=== PATIENT | female | born 1960 | race Caucasian/White ===

== ENCOUNTER → 2018-10-17 14:18 | Outpatient (CLI) | payer BC, SELFPAY ==
--- NOTE | 2018-10-17 15:35 | NEURO ---
NCS and/or EMG Patient Report Ordering Doctor: Ayan Cartagena DATE OF SERVICE: 10/17/18 Michelle Beckham is a 58-year-old female presents for electrodiagnostic testing of the upper limbs. She reports numbness and tingling in both hands, worse on the right side. Electrodiagnostic findings: Right median motor nerve demonstrates prolonged distal latency with normal amplitude and reduced conduction velocity. Left median motor nerve demonstrates normal distal latency with normal amplitude and conduction velocity. Normal ulnar motor response bilaterally. Prolonged right median F wave. Prolonged median sensory latency at the wrist bilaterally. Ulnar and radial sensory responses are normal. Absent right median palmar response prolonged left median palmar response Needle EMG testing showed no evidence of denervation in any muscles tested. Motor unit action potentials are normal amplitude and duration. Next Electrodiagnostic assessment: This is an abnormal study in the upper limbs. 1. Electrodiagnostic findings demonstrate bilateral median mononeuropathy. This is consistent with a moderate right carpal tunnel syndrome and a mild left carpal tunnel syndrome. If there are any further questions, please do not hesitate to contact me.
== END ==
PROVIDERS: Family Provider Family Medicine; PCP Family Medicine; Referring Provider Orthopaedic Surgery Hand Surgery; Visit Provider Orthopaedic Surgery Hand Surgery
DX: G56.03 Carpal tunnel syndrome, bilateral upper limbs (principal)
CPT/HCPCS: 95886; 95912

== ENCOUNTER 2019-04-21 17:38 | Emergency (ER) | payer BC, SELFPAY ==
[2019-04-21 17:38] VITALS: BP 150/89; PULSE 89; RESP 16; TEMP 36.8; O2SAT 99
--- NOTE | 2019-04-21 17:50 | ED.DCSUM_ITS ---
- ER Visit Summary Date of Service: 04/21/19 Chief Complaint: Left hand laceration while sharpening a knife History of Present Illness: The patient is a 59 F right-hand dominant. No seen past medical history. On no blood thinners. She was sharpening a knife at home within the last hour. Patient lacerated dorsum of her left hand proximal to the left index finger MCP joint. Denies any numbness. Denies any loss of range of motion. No prior history. States her tetanus is up-to-date. Physical Examination: Middle-aged female no acute distress vital signs stable afebrile. HEENT exam unremarkable. Lungs are clear. Heart regular rhythm. The dorsum of her left hand has a laceration just proximal to the MCP joint of the left index finger on the dorsum of the hand. There is mild oozing of blood. There is no pulsatile bleeding. No signs of foreign body. She has full flex ion and extension against resistance of the left index finger. Normal touch sensation and cap refill. This does involve the skin and subcu tissue and connective tissue but does not appear to involve the extensor tendon. Again she can flex and extend against resistance. Has normal cap refill intact sensation. Other digits of the left hand are unremarkable. Palm is unremarkable. Test Results: None Emergency Department Course and Treatment: Procedure note: Left hand dorsum laceration with ER repair. Locally anesthetized with lidocaine plain. Washed with Shur-Clens, copiously irrigated and explored. Closed using 2 simple interrupted 4-0 Vicryl sutures in the subcu tissue to close connective tissue. Then 7 simple opted 4-0 Ethilon sutures to close the skin. Patient tolerated procedure well. Suture removal in minimum of 10 maximum 14 days. Keflex 500 4 times daily for 5 days. Treatment Plan: Wound care. Return if any signs of infection. Follow-up if any loss of function. Disposition: Discharge Impression: Left hand dorsum laceration of approximately 4 cm in the ER repair with a 2 layer closure. This note was generated with [employer] dictation software. It may contain incorrect words, spelling, and punctuation that were not noted in review of the chart prior to signing ED Disposition - Plan for ED Patient: Disposition: Home or Assisted Living Instructions: LACERATION, Hand Prescriptions: Cephalexin [Keflex] 500 mg PO Q6 #20 cap Prescription Printed Referrals: Stephan Dorman [Primary Care Provider] - 10 Day for suture removal Additional Instructions: Ice and elevate to decrease pain and swelling. Tylenol and Motrin for pain. Watch for any signs of infection such as pus, swelling, redness or fever is seen return. Follow-up with any loss of function such as decreased range of motion or unable to extend your finger. Suture removal in 10 days.
--- NOTE | 2019-04-21 17:53 | ED.DEP ---
ED Disposition - Plan for ED Patient: Disposition: Home or Assisted Living Instructions: LACERATION, Hand Prescriptions: Cephalexin [Keflex] 500 mg PO Q6 #20 cap Prescription Printed Referrals: Stephan Dorman [Primary Care Provider] - 10 Day for suture removal Additional Instructions: Ice and elevate to decrease pain and swelling. Tylenol and Motrin for pain. Watch for any signs of infection such as pus, swelling, redness or fever is seen return. Follow-up with any loss of function such as decreased range of motion or unable to extend your finger. Suture removal in 10 days.
== END 2019-04-21 19:10 | disposition home or self-care (01) ==
LOC: ED 17:55
PROVIDERS: Emergency Provider Emergency Medicine; Family Provider Family Medicine; PCP Family Medicine
DX: S61.412A Laceration without foreign body of left hand, initial encounter (principal); W26.0XXA Contact with knife, initial encounter; Y93.89 Activity, other specified; Y92.009 Unspecified place in unspecified non-institutional (private) residence as the place of occurrence of the external cause
CPT/HCPCS: 12002; 99283

== ENCOUNTER → 2020-07-29 15:25 | Outpatient (CLI) | payer BC, SELFPAY ==
[2020-07-29 18:27] LABS: Absolute Lymphocyte Count 1.26 X10^3/uL (0.83-4.51); Absolute Neutrophil Count 2.4 X10^3/uL (2.0-7.7); Basophil# 0.03 X10^3/uL; Basophil% 0.8 % (0-1); Eosinophil# 0.02 X10^3/uL; Eosinophils% 0.5 % (0-5); Hematocrit 38.7 % (37-47); Hemoglobin 12.6 g/dL (12.0-15.0); Lymphocyte # 1.26 X10^3/ul (4.0); Lymphocyte % 31.7 % (19-41); Mean Corp Hgb Conc 32.6 g/dL (32-36); Mean Corpuscular Hgb 31.5 pg (27.0-32.0); Mean Corpuscular Volume 96.8 fL (81-99); Mean Platelet Vol. 10.3 fl (6.2-12.0); Monocyte% 7.5 % (0-10); NRBC Flagged by Analyzer 0 % (0-5); Neutrophil # 2.37 X10^3/uL (2.7-7.7); Neutrophil % 59.5 % (47-70); Platelet Count 274 K/mm3 (150-450); RBC Distribution Width CV 13.2 % (11.6-14.6); RBC Distribution Width SD 46.3 fl (35.1-43.9)
[2020-07-29 18:58] LABS: ALB/GLOB Ratio 1.4 RATIO (0.9-2.4); AST(SGOT) 23 U/L (15-37); Alanine Aminotransfer ALT/SGPT 25 U/L (13-56); Albumin, Serum 4.3 g/dL (3.2-5.0); Alkaline Phosphatase 53 U/L (45-117); Anion Gap 7 (5-15); BUN 21 mg/dL (7-18); BUN/Creat Ratio 21.8 RATIO (10-20); Calcium,Total 9.5 mg/dL (8.5-10.1); Chloride 104 mmol/L (98-107); Cholesterol 185 mg/dL (200); Creatinine, Serum 0.96 mg/dL (0.55-1.02); EST Glomerular Filtration Rate 63 mL/min (>60); Est Glom Filt Rate - Afr Amer 76 mL/min (>60); Glucose 76 mg/dL (74-106); High Density Lipoprotein 104 mg/dL; Potassium 3.9 mmol/L (3.5-5.1); Protein, Total 7.3 g/dL (6.4-8.2); Sodium Level 139 mmol/L (136-145); Triglycerides 39 mg/dL; Very Low Density Lipoprotein 8 mg/dL (5-40)
[2020-07-29 19:05] LABS: Hemoglobin A1c 5.6 % (3.8-5.6)
== END ==
PROVIDERS: PCP Family Medicine; Referring Provider Family Medicine; Visit Provider Family Medicine
DX: E78.00 Pure hypercholesterolemia, unspecified (principal); R73.03 Prediabetes
CPT/HCPCS: 36415; 80053; 80061; 83036; 85025

== ENCOUNTER → 2020-08-25 15:28 | Outpatient (CLI) | payer BC, SELFPAY ==
--- NOTE | 2020-08-25 15:32 | BI_ITS ---
MAMMOGRAPHY - BILATERAL SCREENING REASON FOR EXAM: Female, 60 years old. Routine annual screening examination. PERTINENT HISTORY: Aunt with breast cancer. TECHNIQUE: Digital bilateral breast clemencia (3D mammographic acquisition) in the CC and MLO projections. 2-D mediolateral oblique (MLO) and craniocaudad (CC) views of both breasts were obtained. CAD: Full Field Digital Mammography with Computer Added Detection was performed. COMPARISON: Comparison is made with prior abdomen examination dated 08/19/2019. FINDINGS: Breast Composition: The breasts are heterogeneously dense, which may obscure small masses. There are no dominant masses or suspicious calcifications. No other significant abnormalities are identified. There has been no significant change since the prior study. BI/SCRN MAMM (CAD)W/CLEMENCIA BILAT IMPRESSION: Stable bilateral screening mammogram. Yearly follow-up mammogram recommended. (A) ASSESSMENT CATEGORY: BIRADS Category 1: Negative. A letter regarding these results will be sent to the patient by the facility within 30 days. Approximately 10% of breast cancers are not detected by mammography. A normal mammogram should not delay biopsy of a clinically suspicious abnormality. [id number] Electronically Signed: Abrahan Brenner MD at 16:02 EST , Service support ,
== END ==
PROVIDERS: PCP Family Medicine; Referring Provider Family Medicine; Visit Provider Family Medicine
DX: Z12.31 Encounter for screening mammogram for malignant neoplasm of breast (principal)
CPT/HCPCS: 77063; 77067

== ENCOUNTER 2021-07-23 16:12 | Outpatient (CLI) | payer BC, SELFPAY ==
[2021-07-23 17:46] LABS: ALB/GLOB Ratio 1.4 RATIO (0.9-2.4); AST(SGOT) 27 U/L (15-37); Alanine Aminotransfer ALT/SGPT 29 U/L (13-56); Albumin, Serum 4.3 g/dL (3.2-5.0); Alkaline Phosphatase 47 U/L (45-117); Anion Gap 7 (5-15); BUN 15 mg/dL (7-18); BUN/Creat Ratio 14.2 RATIO (10-20); Calcium,Total 9.1 mg/dL (8.5-10.1); Chloride 104 mmol/L (98-107); Creatinine, Serum 1.06 mg/dL (0.55-1.02); EST Glomerular Filtration Rate 56 mL/min (>60); Est Glom Filt Rate - Afr Amer 68 mL/min (>60); Glucose 92 mg/dL (74-106); Potassium 3.9 mmol/L (3.5-5.1); Protein, Total 7.3 g/dL (6.4-8.2); Sodium Level 139 mmol/L (136-145)
== END 2021-07-23 23:59 | disposition short-term general hospital (02) ==
LOC: LAB 16:14
PROVIDERS: PCP Family Medicine; Visit Provider Family Medicine
DX: Z11.59 Encounter for screening for other viral diseases (principal); R73.03 Prediabetes
CPT/HCPCS: 36415; 80053

== ENCOUNTER 2021-08-27 15:18 | Outpatient (CLI) | payer BC, SELFPAY ==
--- NOTE | 2021-08-27 15:28 | BI_ITS ---
MAMMOGRAPHY - BILATERAL SCREENING REASON FOR EXAM: Female, 61 years old. Routine annual screening examination. PERTINENT HISTORY: Aunt with breast cancer. TECHNIQUE: Digital bilateral breast clemencia (3D mammographic acquisition) in the CC and MLO projections. 2-D mediolateral oblique (MLO) and craniocaudad (CC) views of both breasts were obtained. CAD: Full Field Digital Mammography with Computer Added Detection was performed. COMPARISON: Comparison is made with prior study dated 08/25/2020. FINDINGS: Breast Composition: The breasts are extremely dense, which lowers the sensitivity of mammography. There are no dominant masses or suspicious calcifications. No other significant abnormalities are identified. There has been no significant change since the prior study. BI/SCRN MAMM (CAD)W/CLEMENCIA BILAT IMPRESSION: Stable bilateral screening mammogram. Yearly follow-up mammogram recommended. (A) ASSESSMENT CATEGORY: BIRADS Category 1: Negative. A letter regarding these results will be sent to the patient by the facility within 30 days. Approximately 10% of breast cancers are not detected by mammography. A normal mammogram should not delay biopsy of a clinically suspicious abnormality. [id number] Electronically Signed: Abrahan Brenner MD at 8:09 EST ,
== END 2021-08-27 23:59 | disposition home or self-care (01) ==
PROVIDERS: PCP Family Medicine; Visit Provider Nurse Practitioner Adult Health
DX: Z12.31 Encounter for screening mammogram for malignant neoplasm of breast (principal)
CPT/HCPCS: 77063; 77067

== ENCOUNTER → 2022-07-22 | Outpatient (CLI) | payer BC, SELFPAY ==
[2022-07-22 16:03] LABS: Absolute Lymphocyte Count 1.34 X10^3/uL (0.83-4.51); Absolute Neutrophil Count 3.2 X10^3/uL (2.0-7.7); Basophil# 0.04 X10^3/uL; Basophil% 0.8 % (0-1); Eosinophil# 0.05 X10^3/uL; Hematocrit 37.4 % (37-47); Hemoglobin 12.4 g/dL (12.0-15.0); Lymphocyte # 1.34 X10^3/ul (0.83-4.51); Mean Corp Hgb Conc 33.2 g/dL (32-36); Mean Corpuscular Hgb 32.1 pg (27.0-32.0); Mean Corpuscular Volume 96.9 fL (81-99); Mean Platelet Vol. 9.5 fl (6.2-12.0); Monocyte# 0.37 X10^3/uL; Monocyte% 7.4 % (0-10); NRBC Flagged by Analyzer 0 % (0-5); Neutrophil # 3.16 X10^3/uL (2.7-7.7); Neutrophil % 63.6 % (47-70); Platelet Count 287 K/mm3 (150-450); RBC Distribution Width CV 12.5 % (11.6-14.6); Red Blood Count 3.86 M/mm3 (4.2-5.4)
[2022-07-22 16:20] LABS: Hemoglobin A1c 5.7 % (3.8-5.6)
[2022-07-22 16:30] LABS: Cholesterol 175 mg/dL (200); High Density Lipoprotein 112 mg/dL; Triglycerides 33 mg/dL; Very Low Density Lipoprotein 7 mg/dL (5-40)
== END | disposition home or self-care (01) ==
LOC: LAB 15:27
PROVIDERS: PCP Family Medicine; Visit Provider Family Medicine
DX: S22.080A Wedge compression fracture of T11-T12 vertebra, initial encounter for closed fracture (principal); M46.96 Unspecified inflammatory spondylopathy, lumbar region; X58.XXXA Exposure to other specified factors, initial encounter; M48.061 Spinal stenosis, lumbar region without neurogenic claudication; R73.03 Prediabetes; Z11.59 Encounter for screening for other viral diseases; Z85.3 Personal history of malignant neoplasm of breast
CPT/HCPCS: 36415; 80061; 83036; 85025; 86803; 86804

== ENCOUNTER → 2022-08-11 | Outpatient (CLI) | payer BC, SELFPAY ==
[2022-08-11 16:05] LABS: ALB/GLOB Ratio 1.4 RATIO (0.9-2.4); AST(SGOT) 35 U/L (15-37); Alanine Aminotransfer ALT/SGPT 32 U/L (13-56); Albumin, Serum 4.2 g/dL (3.2-5.0); Alkaline Phosphatase 47 U/L (45-117); Anion Gap 7 (5-15); BUN 17 mg/dL (7-18); BUN/Creat Ratio 17.4 RATIO (10-20); Chloride 103 mmol/L (98-107); Creatinine, Serum 0.98 mg/dL (0.55-1.02); EST Glomerular Filtration Rate 62 mL/min (>60); Est Glom Filt Rate - Afr Amer 75 mL/min (>60); Glucose 89 mg/dL (74-106); Potassium 3.7 mmol/L (3.5-5.1); Protein, Total 7.2 g/dL (6.4-8.2); Sodium Level 140 mmol/L (136-145)
== END | disposition home or self-care (01) ==
LOC: LAB 15:24
PROVIDERS: PCP Family Medicine; Visit Provider Family Medicine
DX: R73.03 Prediabetes (principal)
CPT/HCPCS: 36415; 80053

== ENCOUNTER → 2022-09-02 | Outpatient (CLI) | payer BC, SELFPAY ==
--- NOTE | 2022-09-02 15:20 | BI_ITS ---
MAMMOGRAPHY - BILATERAL SCREENING 3-D TOMOSYNTHESIS REASON FOR EXAM: Female, 62 years old. Routine screening PERTINENT HISTORY: Aunt with breast cancer.. TECHNIQUE: 2-D mammograms and 3-D Tomosynthesis of the breast (s) were performed. CAD was performed. COMPARISON: 08/25/2020 FINDINGS: The breast composition is heterogeneously dense that can obscure small breast masses. Scattered benign calcifications are seen. No dense spiculated masses or suspicious microcalcifications are identified. No architectural distortion is identified. There is no skin thickening or retraction. There has been no significant change since the prior study. BI/SCRN MAMM (CAD)W/CLEMENCIA BILAT IMPRESSION: No mammographic signs of malignancy. Routine yearly mammograms recommended. ASSESSMENT CATEGORY: BIRADS Category 2: Benign. A letter regarding these results will be sent to the patient by the facility within 30 days. FOLLOW UP RECOMMENDATION: Yearly follow up mammogram recommended. (A) Approximately 10% of breast cancers are not detected by mammography. A normal mammogram should not delay biopsy of a clinically suspicious abnormality. Electronically Signed: Bandar Huerta MD at 9:13 EDT ,
== END | disposition home or self-care (01) ==
LOC: OPBI 15:18
PROVIDERS: PCP Family Medicine
DX: Z12.31 Encounter for screening mammogram for malignant neoplasm of breast (principal)
CPT/HCPCS: 77063; 77067

== ENCOUNTER → 2022-11-25 | Outpatient (CLI) | payer BC, SELFPAY ==
[2022-11-25 15:45] LABS: Absolute Lymphocyte Count 1.17 X10^3/uL (0.83-4.51); Absolute Neutrophil Count 2.8 X10^3/uL (2.0-7.7); Basophil# 0.03 X10^3/uL; Basophil% 0.7 % (0-1); Eosinophil# 0.02 X10^3/uL; Eosinophils% 0.5 % (0-5); Hematocrit 34.7 % (37-47); Hemoglobin 11.7 g/dL (12.0-15.0); Lymphocyte # 1.17 X10^3/ul (0.83-4.51); Lymphocyte % 26.7 % (19-41); Mean Corp Hgb Conc 33.7 g/dL (32-36); Mean Corpuscular Hgb 32.1 pg (27.0-32.0); Mean Corpuscular Volume 95.1 fL (81-99); Mean Platelet Vol. 9.8 fl (6.2-12.0); Monocyte# 0.34 X10^3/uL; Monocyte% 7.8 % (0-10); NRBC Flagged by Analyzer 0 % (0-5); Neutrophil # 2.82 X10^3/uL (2.7-7.7); Neutrophil % 64.3 % (47-70); Platelet Count 208 K/mm3 (150-450); RBC Distribution Width CV 12.3 % (11.6-14.6); RBC Distribution Width SD 42.9 fl (35.1-43.9); Red Blood Count 3.65 M/mm3 (4.2-5.4); White Blood Count 4.4 K/mm3 (4.4-11.0)
[2022-11-25 16:19] LABS: Vitamin B12 717 pg/mL (211-911)
== END | disposition home or self-care (01) ==
LOC: LAB 15:21
PROVIDERS: PCP Family Medicine; Referring Provider Family Medicine; Visit Provider Family Medicine
DX: D75.89 Other specified diseases of blood and blood-forming organs (principal)
CPT/HCPCS: 36415; 82607; 82746; 85025

== ENCOUNTER → 2023-04-06 | Outpatient (CLI) | payer BC, SELFPAY ==
--- NOTE | 2023-04-06 07:09 | CT_ITS ---
EXAM: CT HEAD WITHOUT INTRAVENOUS CONTRAST CLINICAL INDICATION: BLURRY VISION TECHNIQUE: Multiple axial images were obtained of the head without intravenous contrast. This CT exam was performed using one or more of the following dose reduction techniques: automated exposure control, adjustment of the mA and/or kV according to patient size, and/or use of iterative reconstruction technique. RADIATION DOSE: Total DLP: 745.49 mGy-cm. COMPARISON: No relevant prior studies available. FINDINGS: BRAIN AND EXTRA-AXIAL SPACES: A minimal degree of age-related cortical atrophy is present with slight prominence of the sulci and sylvian fissures. Ventricles are normal in size and shape. There is no midline shift. No intra- or extra-axial hemorrhage. No intracranial mass effect. No evidence of acute infarct. There is preservation of the doe/white matter interface. Posterior fossa structures are unremarkable. Basal cisterns are patent. BONES/JOINTS: Unremarkable. No discrete lytic or blastic abnormalities. VASCULATURE: Atherosclerotic vascular calcification is present. The middle cerebral arteries are not hyperdense. SINUSES: Unremarkable as visualized. Clear. MASTOID AIR CELLS: Unremarkable. Clear. ORBITS: Visualized globes, extraocular muscles, optic nerves and retrobulbar fat appear unremarkable. SELLA: No evidence for suprasellar mass. CT/Brain/Head without Contrast IMPRESSION: No acute intracranial abnormality. Electronically Signed: Huang Menezes MD at 7:32 EDT ,
== END | disposition home or self-care (01) ==
LOC: CT 07:07
PROVIDERS: PCP Family Medicine
DX: H53.8 Other visual disturbances (principal)
CPT/HCPCS: 70450

== ENCOUNTER → 2023-08-01 | Outpatient (CLI) | payer BC, SELFPAY ==
[2023-08-01 16:33] LABS: Absolute Lymphocyte Count 1.53 X10^3/uL (0.83-4.51); Absolute Neutrophil Count 3.5 X10^3/uL (2.0-7.7); Basophil# 0.04 X10^3/uL; Basophil% 0.7 % (0-1); Eosinophil# 0.07 X10^3/uL; Eosinophils% 1.3 % (0-5); Hematocrit 36.3 % (37-47); Lymphocyte # 1.53 X10^3/ul (0.83-4.51); Lymphocyte % 27.8 % (19-41); Mean Corp Hgb Conc 33.1 g/dL (32-36); Mean Corpuscular Hgb 31.6 pg (27.0-32.0); Mean Corpuscular Volume 95.5 fL (81-99); Mean Platelet Vol. 9.9 fl (6.2-12.0); Monocyte% 7.3 % (0-10); NRBC Flagged by Analyzer 0 % (0-5); Neutrophil # 3.45 X10^3/uL (2.7-7.7); Neutrophil % 62.5 % (47-70); Platelet Count 259 K/mm3 (150-450); RBC Distribution Width CV 13.1 % (11.6-14.6); White Blood Count 5.5 K/mm3 (4.4-11.0)
[2023-08-01 16:58] LABS: ALB/GLOB Ratio 1.5 RATIO (0.9-2.4); AST(SGOT) 21 U/L (15-37); Alanine Aminotransfer ALT/SGPT 28 U/L (13-56); Albumin, Serum 4.3 g/dL (3.2-5.0); Alkaline Phosphatase 45 U/L (45-117); Anion Gap 3 (5-15); BUN 15 mg/dL (7-18); BUN/Creat Ratio 14.7 RATIO (10-20); Calcium,Total 9.4 mg/dL (8.5-10.1); Chloride 103 mmol/L (98-107); Cholesterol 207 mg/dL (200); Creatinine, Serum 1.02 mg/dL (0.55-1.02); EST Glomerular Filtration Rate 58 mL/min (>60); Est Glom Filt Rate - Afr Amer 71 mL/min (>60); Globulin 2.9 g/dL (2.2-4.2); Glucose 86 mg/dL (74-106); High Density Lipoprotein 96 mg/dL; Potassium 3.9 mmol/L (3.5-5.1); Protein, Total 7.2 g/dL (6.4-8.2); Sodium Level 135 mmol/L (136-145); Triglycerides 54 mg/dL; Very Low Density Lipoprotein 11 mg/dL (5-40)
[2023-08-01 17:02] LABS: Hemoglobin A1c 5.3 % (3.8-5.6)
--- OUTSIDE RECORDS SUMMARY | 2023-08-01 19:07 | XMS RPT_ITS | CCD ---
Author Name Unknown Address [address] [place] [address] Organization [facility] Care Team Providers Care Check Writing Machine Operator Name Role Phone Osiel JACKMAN, Ayan Maier Unavailable [phone] Allergies Allergy Classification Reported Allergen(s) Allergy Type Date of Onset Reaction(s) Facility (1 source) Penicillin G Drug Allergy 05-01-2018 [facility] Work Phone: Medications Completed/Discontinued Medications Medication Drug Class(es) Dates Sig (Normalized) Sig (Original) acetaminophen 500 mg oral tablet (1 source) Start: 06-05-2019 take 2 tablets by mouth once daily as needed ACETAMINOPHEN 500 MG TABS 2 tablet by mouth once a day as needed acetaminophen [id number] Madyson Ambriz RN Acetaminophen / Codeine (1 source) Opioid Agonist take 1 tablet by mouth once daily as needed Tylenol with Codeine 1 tablet by mouth once a day as needed Patient unsure of dose Tylenol with Codeine Jeannette Almodovar LPN calcium carbonate 500 mg chewable tablet (1 source) Start: 06-12-2019 TUMS 500 MG CHEW tablet by mouth as directed as needed calcium carbonate [id number] Madyson Ambriz RN dextromethorphan hydrobromide 1 mg/ml / doxylamine succinate 0.417 mg/ml oral solution (1 source) Uncompetitive W-qvlxyb-[place] te Receptor Antagonist, Sigma-1 Agonist Start: 05-01-2018 VICKS NYQUIL COUGH 6.25-15 MG/15ML LIQD by mouth as directed as needed doxylamine-dextrom ethorphan [id number] Madyson Ambriz RN HOMEOPATHIC PRODUCTS (1 source) Start: 06-12-2019 COLD-EEZE PLUS DEFENSE CHEW by mouth as directed as needed HOMEOPATHIC PRODUCTS Madyson Ambriz RN lysine 500 mg oral tablet (1 source) Start: 05-01-2018 take 2 tablets by mouth once daily LYSINE HCL 500 MG TABS 2 tablet by mouth once a day lysine hcl [id number] Madyson Ambriz RN mv-min-vit c-rizwcmfi-vkjx 124 (1 source) take 1 tablet by mouth once daily AIRBORNE TBEF 1 tablet by mouth once a day mv-min-vit a-vvuxkvfl-tqjr 124 [id number] Jeannette Almodovar LPN Zinc (1 source) Start: 06-05-2019 ZINC MOUTH/THROAT LOZENGE by mouth as directed as needed ZINC Madyson Ambriz RN Problems Active Problems Problem Classification Problem Date Documented Da te Episodic/Chronic Other nervous system disorders (1 source) Carpal tunnel syndrome, left upper limb; Translations: [Carpal tunnel syndrome] Onset: 06-13-2018 06-13-2018 Chronic Other nervous system disorders (1 source) Carpal tunnel syndrome, right upper limb; Translations: [Carpal tunnel syndrome] Onset: 06-13-2018 06-13-2018 Chronic Past or Other Problems Problem Classification Problem Date Documented Da te Episodic/Chronic Sprains and strains (1 source) Rupture of tendon of finger; Translations: [Sprain of hand, unspecified site] Onset: 06-12-2019 06-12-2019 Episodic Unclassified (1 source) Problem Results Test Name Value Interpretation Reference Range Facil ity Vital Signs Date Time Vital Sign Value Performing Clinician Facility NEGATED: Highlighted [id number] 15:03-0400 Body height 161.29 cm Jeannette Nishi CAMARENA [facility] Work Phone: NEGATED: Highlighted [id number] 15:03-0400 Body height 161 cm Jeannette Almodovar MIGUE [facility] Work Phone: NEGATED: Highlighted [id number] 15:03-0400 Body mass index (BMI) [Ratio] 19.25 kg/m2 Jeannetteiraj Almodovar MIGUE [facility] Work Phone: NEGATED: Highlighted [id number] 15:03-0400 Body weight 49.9 kg Jeannette Almodovar LPN [facility] Work Phone: NEGATED: Highlighted [id number] 15: Body weight 50 kg Jeannette Nishi CAMARENA [facility] Work Phone: Procedures Date Procedure Procedure Detail Performing Clinician Start: 10-13-2021 End: 10-14-2021 BP scrn no perf at interval Ayan Cartagena MD Work Phone: Start: 10-13-2021 End: 10-14-2021 Calc BMI norm parameters Ayan stovall MD Work Phone: Start: 10-13-2021 End: 10-14-2021 Current tobacco non-user cad cap copd pv dm Ayan Cartagena MD Work Phone: Start: 10-13-2021 End: 10-14-2021 Docrev cur meds by george Cartagena MD Work Phone: Start: 10-13-2021 End: 10-14-2021 Pain neg no plan Ayan Leiva Work Phone: Start: 10-13-2021 End: 10-14-2021 Patient encounter procedure Ayan Cartagena MD Work Phone: Start: 10-13-2021 End: 10-13-2021 Radex wrist complete minimum 3 views Ayan Cartagena MD Work Phone: NEGATED: Highlighted rowStart: 10-13-2021 End: 10-13-2021 Documentation of current medications Jeannette Almodovar LPN Plan of Treatment Date Care Activity Detail Author [facility] Work Phone: Social History Date Type Detail Facility Start: 10-14-2021 End: 10-14-2021 Assertion Unknown if ever smoked [facility] Work Phone: Evaluation note Note Date & Type Note Facility Evaluation note There may be informa tion available, but it has not been provided by the sender. [facility] Work Phone: Instructions Note Date & Type Note Facility [facility] Work Phone: Summary Purpose Family History No Family History Records FoundThere may be information available, but it has not been provided by the sender. Advance Directives No Advanced Directives Records FoundThere may be information available, but it has not been provided by the sender. Chief Complaint Chief Complaint Description Start Date bilateral hand pain Preliminary chief co mplaint data, not yet signed by the author as of Additional Source Comments INFORMATION SOURCE (unrecogn ized section and content) Reason for Visit (unrecogniz ed section and content) FOR RECORDS PERTAINING TO PATIENTS WHO ARE OR HAVE BEEN ENROLLED IN A CHEMICAL DEPENDENCY/SUBSTANCEABUSE PROGRAM, SOME INFORMATION MAY BE OMITTED. This clinical summary was aggregated from multiple sources. Caution should be exercised in using it in the provision of clinical care. This summary normalizes information from multiple sources, and as a consequence, information in this document may materially change the coding, format and clinical context of patient data. In addition, data may be omitted in some cases. CLINICAL DECISIONS SHOULD BE BASED ON THE PRIMARY CLINICAL RECORDS. [employer] [facility]. provides no warranty or guarantee of the accuracy or completeness of information in this document.
== END | disposition home or self-care (01) ==
LOC: LAB 15:20
PROVIDERS: PCP Family Medicine; Referring Provider Family Medicine; Visit Provider Family Medicine
DX: R73.03 Prediabetes (principal)
CPT/HCPCS: 36415; 80053; 80061; 83036; 85025

== ENCOUNTER → 2023-09-12 | Outpatient (CLI) | payer BC, SELFPAY ==
--- NOTE | 2023-09-12 14:52 | BD_ITS ---
STUDY: DUAL ENERGY X-RAY ABSORPTIOMETRY / DXA REASON FOR EXAM: Female, 63 years old. [id number] TECHNIQUE: Bone Mineral Density (BMD) measurements of lumbar spine and bilateral hips were obtained. COMPARISON: None. FINDINGS: Lumbar Spine (L1-L4): g/cm2 (0.893) / T-score (-1.4) / Z-score (0.2) Findings are suggestive of osteopenia with a low fracture risk. Left Femur Total: g/cm2 (0.703) / T-score (-2.0) / Z-score (-0.9) Left Femoral Neck: g/cm2 (0.691) / T-score (-1.4) / Z-score (0.0) Right Femur Total: g/cm2 (0.701) / T-score (-2.0) / Z-score (-0.9) Right Femoral Neck: g/cm2 (0.676) / T-score (-1.6) / Z-score (-0.2) BD/Dexa Bone Density Study IMPRESSION: The patient is considered osteopenic as outlined below according to World Mark Organization (WHO) criteria with a moderate fracture risk. Reference Information: The T-score is the number of standard deviations above or below the standard which is normal for young adults at their peak bone mineral density. The World Health Organization (WHO) interprets the T-scores as follows: Above -1 Normal bone density Between -1 and -2.5 Osteopenia Equal to / or below -2.5 Osteoporosis As a practical clinical guideline, osteopenia may be graded as follows: Mild -1 through -1.5 Moderate -1.6 through -2.0 Severe -2.1 through -2.4 The Z-score is the number of standard deviations above or below age-matched controls. A Z-score of less than -1.5 would be considered abnormal. References: 1. NIH Osteoporosis and Related Bone Diseases www osteo.org 2. International Society for Clinical Densitometry www iscd.org 3. National Osteoporosis Foundation www nof.org Electronically Signed: Abrahan Brenner MD at 14:04 EDT ,
--- NOTE | 2023-09-12 14:53 | BI_ITS ---
MAMMOGRAPHY - BILATERAL SCREENING REASON FOR EXAM: Female, 63 years old. Routine annual screening examination. PERTINENT HISTORY: Aunt with breast cancer. TECHNIQUE: Digital bilateral breast clemencia (3D mammographic acquisition) in the CC and MLO projections. 2-D mediolateral oblique (MLO) and craniocaudad (CC) views of both breasts were obtained. CAD: Full Field Digital Mammography with Computer Added Detection was performed. COMPARISON: Comparison is made with prior study dated September 02, 2022 and August 27, 2021. FINDINGS: Breast Composition: The breasts are extremely dense, which lowers the sensitivity of mammography. I suspect a well-defined 2 cm x 2.2 cm nodule in the retroareolar region of the right breast. Correlation with ultrasound is recommended. No other significant abnormalities are identified. BI/SCRN MAMM (CAD)W/CLEMENCIA BILAT IMPRESSION: I suspect a 2 cm x 2.2 cm well-defined nodule in the retroareolar region of the right breast. Correlation with ultrasound is recommended. ASSESSMENT CATEGORY: BIRADS Category 0: Incomplete. Need additional imaging evaluation. A letter regarding these results will be sent to the patient by the facility within 30 days. Approximately 10% of breast cancers are not detected by mammography. A normal mammogram should not delay biopsy of a clinically suspicious abnormality. [id number] Electronically Signed: Abrahan Brenner MD at 19:02 EDT ,
== END | disposition home or self-care (01) ==
PROVIDERS: PCP Family Medicine; Referring Provider Family Medicine; Visit Provider Family Medicine
DX: Z12.31 Encounter for screening mammogram for malignant neoplasm of breast (principal); Z78.0 Asymptomatic menopausal state
CPT/HCPCS: 77063; 77067; 77080

== ENCOUNTER → 2023-09-28 | Outpatient (CLI) | payer BC, SELFPAY ==
--- NOTE | 2023-09-28 12:38 | US_ITS ---
STUDY: ULTRASOUND BREAST - RIGHT REASON FOR EXAM: Female, 63 years old. Abnormal screening mammogram. TECHNIQUE: Axial and longitudinal images of the RIGHT breast were performed with a high resolution ultrasound transducer. # OF IMAGES: 23 COMPARISON: Comparison is made with prior mammogram dated September 12, 2023. FINDINGS: RIGHT Breast: The retroareolar region of the right breast was examined with ultrasound. There is dense fibroglandular tissue. There are dilated retroareolar ducts. The patient will be recalled for additional views of the right breast including compression spot views and 90 degree lateral view. US/Breast Limited Unilateral IMPRESSION: Dilated retroareolar ducts. No mass is seen. The patient will be recalled for additional views. ASSESSMENT CATEGORY: BIRADS Category 0: Incomplete. Need additional imaging evaluation. A letter regarding these results will be sent to the patient by the facility within 30 days. Electronically Signed: Abrahan Brenner MD at 15:36 EDT ,
== END | disposition home or self-care (01) ==
LOC: OPUS 12:34
PROVIDERS: PCP Family Medicine; Referring Provider Family Medicine; Visit Provider Family Medicine
DX: R92.8 Other abnormal and inconclusive findings on diagnostic imaging of breast (principal)
CPT/HCPCS: 76642

== ENCOUNTER → 2023-10-04 | Outpatient (CLI) | payer BC, SELFPAY ==
--- NOTE | 2023-10-04 14:35 | BI_ITS ---
MAMMOGRAPHY - UNILATERAL DIAGNOSTIC: RIGHT BREAST REASON FOR EXAM: Female, 63 years old. Abnormal screening mammogram. PERTINENT HISTORY: Aunt with breast cancer. TECHNIQUE: 90 degree lateral view as well as compression spot views were obtained. CAD: Full Field Digital Mammography with Computer Added Detection was performed. COMPARISON: Comparison is made with prior mammogram dated September 12, 2023. FINDINGS: Breast Composition: The breasts are extremely dense, which lowers the sensitivity of mammography. There are no dominant masses or suspicious calcifications. No other significant abnormalities are identified. BI/DIAG MAMM W/CAD, UNILAT IMPRESSION: Negative unilateral diagnostic mammogram. Yearly followup mammogram recommended. (A) ASSESSMENT CATEGORY: BIRADS Category 1: Negative. A letter regarding these results will be sent to the patient by the facility within 30 days. Approximately 10% of breast cancers are not detected by mammography. A normal mammogram should not delay biopsy of a clinically suspicious abnormality. Electronically Signed: Abrahan Brenner MD at 15:33 EDT ,
== END | disposition home or self-care (01) ==
LOC: OPBI 14:19
PROVIDERS: PCP Family Medicine; Referring Provider Family Medicine; Visit Provider Family Medicine
DX: R92.8 Other abnormal and inconclusive findings on diagnostic imaging of breast (principal)
CPT/HCPCS: 77065

== ENCOUNTER 2024-07-18 15:30 | Outpatient (RCR) | payer BC, SELFPAY ==
--- NOTE | 2024-05-20 16:56 | HP.PTEVAL_ITS ---
Patient's Visit Information Visit Information Visit Information: PRABHJOT STRATTON is a 64 year old F referred to Physical Therapy by MARIXA GRAY with a diagnosis of ACUTE MIDLELINE LOW BACK PAIN WITOUT SCIATICA. Date of Evaluation: 05/20/24 Physical Therapist: Beto Mckeon, PT, Cert MDT, OCS Visit Plan Frequency: 2x /Week Duration: 4 Weeks Plan: PT INTERVENTIONS DLS ,POSTURAL EX'S ,CLEMENT EX'S , MODALITIES PRN FOR PAIN AND POSTURE /BODY MECHANICS Subjective Subjective: This 64 y/o female presents to physical therapy with lumbar pain. Patient November lifting plants 2023 but got Sept. Then symptoms return Nov worse when lifting in cupboard . Then 2 weeks ago bent over in shower picking up shampoo caused pain in middle of back. Seen x-rays - Tried cream for voltrain. Patient seen chiropractor for adjustments every 6 week ,massage therapy and tried acupuncture. No medication.Pain located lumbar right lateral hip. Described as ache. Aggravating lifting ,bending ,elevation from chair.Alleviating factors rest. No change with walking standing. Denies paresthesia/tingling -. Coughing/sneezing -.Sleeping okay . Bowel/bladder-. Patient condition affects QOL and function . Patient goal to have no pain with min episode. SOCAIL: VOCATION: [employer] [facility] Bilateral Back: Pain Intensity (Out of 10): 2 Pain Intensity Range: 10 Objective Objective: POSTURE : mild forward posture GAIT: reciprocal pattern NEURO: denies paresthesia/tingling ,reflexes L3-4,L4-5,L5-S1 PALAPTION: tender LS LUMBAR ROM: flexion WFL ,extension min loss ,side glides min loss MMT: quads/hams 4/5 ,hip flexion 4/5 ,ankle 4/5 HIP PROM: flexion /IR/ER WFL Special Tests L/S Slump test left side: Negative L/S Slump test right side: Negative L/S Left Straight Leg Raise: Negative L/S Right Straight Leg Raise: Negative Lumbar Standing: Flexion - Mechanical Response: No effect Lumbar Standing: Flexion - Symptoms During Testing: No effect Lumbar Standing: Flexion - Symptoms After Testing: No effect Lumbar Standing: Extension - Mechanical Response: No effect Lumbar Standing: Extension - Symptoms During Testing: Increases Lumbar Standing: Extension - Symptoms After Testing: No worse Lumbar Standing: Right Side Glides - Mechanical Response: No effect Lumbar Standing: Right Side [place] - Symptoms During Testing: No effect Lumbar Standing: Right Side [place] - Symptoms After Testing: No effect Lumbar Standing: Left Side [place] - Mechanical Response: No effect Lumbar Standing: Left Side [place] - Symptoms During Testing: Increases Lumbar Standing: Left Side [place] - Symptoms After Testing: No better Lumbar Lying: Flexion - Mechanical Response: No effect Lumbar Lying: Flexion - Symptoms During Testing: Increases Lumbar Lying: Flexion - Symptoms After Testing: No worse Lumbar Lying: Extension - Mechanical Response: No effect Lumbar Lying: Extension - Symptoms During Testing: Decreases Lumbar Lying: Extension - Symptoms After Testing: Better Balance/Special Test Scores Oswestry Low Back Score: 25 Goals Goal 1:: Patient to be I with HEP for back Goal Time Frame: 4-6 Weeks Goal 2:: Patient to improve lumbar ROM for function of recovery for job demands Goal Time Frame: 4-6 Weeks Goal 3:: Patient to improve back oswestry by 5 points to improve QOL Goal Time Frame: 4-6 Weeks Goal 4:: Patient to demonstrate 50% improvement with less pain and improved function Goal Time Frame: 4-6 Weeks Goal 5:: Patient to be I with posture/body mechanics 90% of the time Goal Time Frame: 4-6 Weeks Rehabilitation Potential Physical Therapy Diagnosis: This patient has possible derangement with radiculopathy with pain worse with portioning and motioning testing thus benefit from skilled PT Rehabilitation Potential: Good Anticipated Interventions Patient/Client Instruction: Educate patient on: Condition and Plan of Care For the Purpose of:: To decrease pain, To increase ROM, To improve muscle performance and motor function, To improve ability to perform ADL's, To increase tolerance to activity/condition/position, To improve ability of physical actions for home/community/work/leisure, To improve gait and locomotor functions, To increase flexibility/ROM, To reduce risk of recurrence, To prevent re-injury and To improve tolerance to ADL's Therapeutic Exercise to Include: Strength training, Body mechanics, Postural training, Flexibilty training, Active ROM and Clement Exercises For the Purpose of:: To decrease pain, To improve muscle performance and motor function, To improve ability to perform ADL's, To increase tolerance to activity/condition/position, To improve ability of physical actions for home/community/work/leisure, To improve health of tissue, To decrease soft tissue restriction and To increase flexibility/ROM TENS: Yes IF ES: Yes Cryotherapy (ice pack, ice massage): Yes Thermo therapy (hot pack): Yes Ultrasound (thermal/non thermal): Yes For the Purpose of:: To decrease pain, To increase ROM, To improve nutrient delivery to tissue, To increase oxygenation perfusion, To improve health of tissue and To decrease soft tissue restriction Text: Thank you for the opportunity to evaluate your patient. For Medicare and Medicare HMO plans, please review the plan of care and approve it. It will need to be FAXED BACK to us at [phone] for Medicare purposes. For Medicare only, by signing this I certify the plan of care. Please let me know if there are questions or concerns regarding this plan of care. Physician Signature: Dat e:
--- NOTE | 2024-07-18 16:15 | HP.PTDCSUM ---
Discharge Summary D/C summary: It has been my pleasure to treat PRABHJOT STRATTON referred by MARIXA GRAY, with the diagnosis of ACUTE MIDLELINE LOW BACK PAIN WITHOUT SCIATICA for a total of 16 visit(s). Discharge Date: 07/18/24 Please see the following information for a summary of their discharge status. Subjective Subjective: Patient not get better , Seen DR had x-rays DDD ,prednisone Worse in AM ,moving is better Pain is a ache RTD next week Cont with chiropractor , 1x month and massage Pain Bilateral Back: Pain Intensity (Out of 10): 1 R LE: Pain Intensity (Out of 10): 1 Overall Improvement % Improvement: 50 Objective Objective/Function: POSTURE : mild forward posture GAIT: reciprocal pattern NEURO: denies paresthesia/tingling ,reflexes L3-4,L4-5,L5-S1 PALAPTION: tender LS LUMBAR ROM: flexion WFL ,extension min loss ,side glides min loss MMT: quads/hams 4/5 ,hip flexion 4/5 ,ankle 4/5 HIP PROM: flexion /IR/ER WFL Goals Goal 1:: Patient to be I with HEP for back Goal Progress: Progressing Goal 2:: Patient to improve lumbar ROM for function of recovery for job demands Goal Progress: Progressing Goal 3:: Patient to improve back oswestry by 5 points to improve QOL Goal Progress: Progressing Goal 4:: Patient to demonstrate 50% improvement with less pain and improved function Goal Progress: Goal Met Goal 5:: Patient to be I with posture/body mechanics 90% of the time Plan Plan: D/C to HEP D/C Information d/c sentence: If there are questions or concerns regarding this patient's physical therapy, please feel free to call me at [phone]. Thank you for the referral of this patient. Sincerely, Beto Mckeon, PT, Cert MDT, OCS Balance/Gait/Functional tests Balance/Special Test Scores Oswestry Low Back Score: 12 Improvement % Improvement: 50
== END 2024-07-18 19:00 | disposition home or self-care (01) ==
LOC: PT 15:30
PROVIDERS: PCP Family Medicine
DX: M54.50 Low back pain, unspecified (principal); G89.29 Other chronic pain
CPT/HCPCS: 97110; 97161; 97530

== ENCOUNTER → 2024-07-31 | Outpatient (CLI) | payer BC, SELFPAY ==
[2024-07-31 16:08] LABS: Absolute Lymphocyte Count 1.06 X10^3/uL (0.83-4.51); Absolute Neutrophil Count 3.2 X10^3/uL (2.0-7.7); Basophil# 0.04 X10^3/uL; Basophil% 0.8 % (0-1); Eosinophil# 0.07 X10^3/uL; Eosinophils% 1.5 % (0-5); Hematocrit 36.4 % (37-47); Hemoglobin 12.4 g/dL (12.0-15.0); Lymphocyte # 1.06 X10^3/ul (0.83-4.51); Lymphocyte % 22.4 % (19-41); Mean Corp Hgb Conc 34.1 g/dL (32-36); Mean Corpuscular Hgb 32.9 pg (27.0-32.0); Mean Corpuscular Volume 96.6 fL (81-99); Mean Platelet Vol. 9.9 fl (6.2-12.0); Monocyte# 0.35 X10^3/uL; Monocyte% 7.4 % (0-10); NRBC Flagged by Analyzer 0 % (0-5); Neutrophil % 67.5 % (47-70); Platelet Count 224 K/mm3 (150-450); RBC Distribution Width CV 12.5 % (11.6-14.6); RBC Distribution Width SD 44.1 fl (35.1-43.9); Red Blood Count 3.77 M/mm3 (4.2-5.4); White Blood Count 4.7 K/mm3 (4.4-11.0)
[2024-07-31 17:40] LABS: ALB/GLOB Ratio 1.2 RATIO (0.9-2.4); AST(SGOT) 26 U/L (15-37); Alanine Aminotransfer ALT/SGPT 26 U/L (13-56); Albumin, Serum 3.9 g/dL (3.2-5.0); Alkaline Phosphatase 46 U/L (45-117); Anion Gap 5 (5-15); BUN 15 mg/dL (7-18); BUN/Creat Ratio 16.1 RATIO (10-20); Calcium,Total 9.3 mg/dL (8.5-10.1); Chloride 105 mmol/L (98-107); Cholesterol 211 mg/dL (200); Creatinine, Serum 0.93 mg/dL (0.55-1.02); EST Glomerular Filtration Rate 64 mL/min (>60); Est Glom Filt Rate - Afr Amer 78 mL/min (>60); Globulin 3.2 g/dL (2.2-4.2); Glucose 86 mg/dL (74-106); High Density Lipoprotein 106 mg/dL; Potassium 4.6 mmol/L (3.5-5.1); Protein, Total 7.1 g/dL (6.4-8.2); Sodium Level 138 mmol/L (136-145); Triglycerides 48 mg/dL; Very Low Density Lipoprotein 10 mg/dL (5-40)
[2024-07-31 19:31] LABS: Hemoglobin A1c 5.1 % (3.8-5.6)
== END | disposition home or self-care (01) ==
LOC: LAB 15:20
PROVIDERS: PCP Family Medicine; Referring Provider Family Medicine; Visit Provider Family Medicine
DX: Z52.4 Kidney donor (principal); R73.03 Prediabetes; D75.89 Other specified diseases of blood and blood-forming organs; Z13.220 Encounter for screening for lipoid disorders
CPT/HCPCS: 36415; 80053; 80061; 83036; 85025

== ENCOUNTER 2024-09-25 15:30 | Outpatient (RCR) | payer BC, SELFPAY ==
--- NOTE | 2024-08-15 16:57 | HP.PTEVAL_ITS ---
Patient's Visit Information Visit Information Visit Information: PRABHJOT STRATTON is a 64 year old F referred to Physical Therapy by Dr. Austin Moe MD with a diagnosis of IMPINGEMENT SYNDROME OF LEFT SHOULDER ,CERVICALGIA. Date of Evaluation: 08/15/24 Physical Therapist: Beto Mckeon, PT, Cert MDT, OCS Visit Plan Frequency: 2x /Week Duration: 4 Weeks Plan: PT INTERVENTIONS RTC /SCAPULAR STRENGTHENING ,POSTURAL EX'S ,ACTIVITY MODIFICATION AND MODALITIES PRN Subjective Subjective: This 64 y/o female presents to physical therapy with left shoulder impingement and cervical pain. Patient has had left shoulder pain refers to deltoid. Seen DR Abhi VASQUEZ and did x-rays -. No medication. Patient seen PA recommended PT. Aggravating factors arm OH ,carrying something heavy ,lifting in front . Alleviating factors rest.Patient pain can affects sleeping. Denies paresthesia/tingling. Denies BURGOS /nausea/tinnitus /dizziness.Pain described as ache. Patient has h/o of right shoulder pain. Patient condition affects QOL and function and job demands. Patient goals to decrease pain. SOCIAL: VOCATION: [employer] [facility] Left Shoulder: Pain Intensity (Out of 10): 3 Pain Intensity Range: 10 Objective Objective: POSTURE: rounded shoulders head forward NEURO: denies paresthesia/tingling ,reflexes C5-6-7 3/3 PALAPTION: tender UT /levator CERVICAL ROM: WFL all planes of motion no pain AROM: shoulder flexion /abduction 180 degrees ,ER 90 degrees ,IR T6 MMT: ( peak force) infraspinatus 11.3 ,supraspinatus 13.9 ,subscapularis 15.9 ,deltoid 10.3 pain MMT: Special Tests C/S Radiculapathy - Left Upper limb tension test: Negative C/S Radiculapathy - Right Upper limb tension test: Negative C/S Radiculapathy - Left Spurlings: Negative C/S Radiculapathy - Right Spurlings: Negative C/S Radiculapathy - Left Cervical distraction: Negative C/S Radiculapathy - Right Cervical distraction: Negative C/S Radiculapathy - Left Relief test: Negative C/S Radiculapathy - Right Relief test: Negative Sharp Gael: Negative Vertebral Artery Test: Negative Alar Ligament Test: Negative R Shoulder External Rotation Lag Test - RC Tear: Negative R Shoulder Supine Impingement Test - RC Tear: Negative R Shoulder Drop Sign - IS Test: Negative R Shoulder Empty Can - SS: Positive R Shoulder Belly Press - SupScap: Negative R Shoulder Neer - Impingement: Negative R Shoulder Torres Yvon - Impingement: Negative R Shoulder Yeargasons - SLAP: Negative R Shoulder Speeds Test - Labrum/Biceps: Negative R Shoulder Sulcus Sign - Inferior Laxity: Positive Balance/Special Test Scores Quick DASH Score: 20.4525 Goals Goal 1:: Patient to be I with HEP for shoulder Goal Time Frame: 4-6 Weeks Goal 2:: Patient to demonstrate 50% improvement with less pain and improved function with job Goal Time Frame: 4-6 Weeks Goal 3:: Patient to improve peak force RTC and deltoid by 5-10# to improve function Goal Time Frame: 4-6 Weeks Goal 4:: Patient to improve quick dash by 5 points to improve QOL and function Goal Time Frame: 4-6 Weeks Goal 5:: Patient to ability to perform job demands and housework tasks with no pain Goal Time Frame: 4-6 Weeks Rehabilitation Potential Physical Therapy Diagnosis: This patient has left shoulder impingement with weakness RTC and instability G-H with pain affects ADLS and activities above 90 degrees and housework/job demands thus benefit from skilled PT Rehabilitation Potential: Good Anticipated Interventions Patient/Client Instruction: Educate patient on: Condition and Plan of Care For the Purpose of:: To decrease pain, To increase ROM, To improve muscle performance and motor function, To improve ability to perform ADL's, To increase tolerance to activity/condition/position, To improve ability of physical actions for home/community/work/leisure, To improve health of tissue, To decrease soft tissue restriction and To improve tolerance to ADL's Therapeutic Exercise to Include: Strength training, Postural training, Flexibilty training and Active ROM Comment: RTC For the Purpose of:: To decrease pain, To increase ROM, To improve muscle performance and motor function, To increase tolerance to activ ity/condition/position, To improve ability of physical actions for home/community/work/leisure, To improve health of tissue, To decrease soft tissue restriction, To increase flexibility/ROM, To reduce risk of recurrence and To improve tolerance to ADL's TENS: Yes IF ES: Yes Cryotherapy (ice pack, ice massage): Yes Thermo therapy (hot pack): Yes Ultrasound (thermal/non thermal): Yes For the Purpose of:: To decrease pain, To increase ROM, To improve nutrient delivery to tissue, To increase oxygenation perfusion, To improve health of tissue and To decrease soft tissue restriction Text: Thank you for the opportunity to evaluate your patient. For Medicare and Medicare HMO plans, please review the plan of care and approve it. It will need to be FAXED BACK to us at [phone] for Medicare purposes. For Medicare only, by signing this I certify the plan of care. Please let me know if there are questions or concerns regarding this plan of care. Physician Signature: Date:
--- NOTE | 2025-03-03 16:42 | HP.PTDCSUM ---
Discharge Summary D/C summary: It has been my pleasure to treat PRABHJOT STRATTON referred by Dr. Austin Moe MD, with the diagnosis of IMPINGEMENT SYNDROME OF LEFT SHOULDER ,CERVICALGIA for a total of 9 visit(s). Discharge Date: Please see the following information for a summary of their discharge status. Subjective Subjective: PT is not helping . Patient symptoms intermittent .. Not specific with activities Pain Left Shoulder: Pain Intensity (Out of 10): 0 Overall Improvement % Improvement: 40 Objective Objective/Function: POSTURE: rounded shoulders head forward NEURO: denies paresthesia/tingling ,reflexes C5-6-7 3/3 PALAPTION: tender UT /levator CERVICAL ROM: WFL all planes of motion no pain AROM: shoulder flexion /abduction 180 degrees ,ER 90 degrees ,IR T6 MMT: ( peak force) infraspinatus 14.3 ,supraspinatus 16.9 ,subscapularis 15.9 ,deltoid 17.3 pain Goals Goal 1:: Patient to be I with HEP for shoulder Goal Progress: Goal Met Goal 2:: Patient to demonstrate 50% improvement with less pain and improved function with job Goal Progress: Goal Met Goal 3:: Patient to improve peak force RTC and deltoid by 5-10# to improve function Goal Progress: Goal Met Goal 4:: Patient to improve quick dash by 5 points to improve QOL and function Goal Progress: Goal Met Goal 5:: Patient to ability to perform job demands and housework tasks with no pain Plan Plan: D/C D/C Information d/c sentence: If there are questions or concerns regarding this patient's physical therapy, please feel free to call me at [phone]. Thank you for the referral of this patient. Sincerely, Beto Mckeon, PT, Cert MDT, OCS Balance/Gait/Functional tests Balance/Special Test Scores Quick DASH Score: 7.5000 Improvement % Improvement: 40
== END 2024-09-25 19:00 | disposition home or self-care (01) ==
LOC: PT 15:30
PROVIDERS: PCP Family Medicine; Referring Provider Orthopaedic Surgery; Visit Provider Orthopaedic Surgery
DX: M75.42 Impingement syndrome of left shoulder (principal); M54.2 Cervicalgia
CPT/HCPCS: 97110; 97162; 97530

== ENCOUNTER → 2024-10-09 | Outpatient (CLI) | payer BC, SELFPAY ==
--- NOTE | 2024-10-09 15:52 | BI_ITS ---
EXAM: SCRN MAMM (CAD)W/CLEMENCIA BILAT 10/09/2024 CLINICAL HISTORY: F, Age 64 y/o , SCREENING TECHNIQUE: Bilateral screening digital breast tomosynthesis with 2D and 3D images. Computer aided detection. COMPARISON: Prior exam(s) dated 10/04/2023, 09/12/2023. FINDINGS: TISSUE DENSITY: The breast tissue is extremely dense which lowers the sensitivity of mammography. The mammogram demonstrates that the patient has dense breasts. Supplemental screening with whole breast ultrasound or MRI may be considered for further evaluation. Bilateral Breast Mammographic Findings: No significant masses, calcifications or other abnormalities are identified. BI/SCRN MAMM (CAD)W/CLEMENCIA BILAT IMPRESSION: Right Breast: BIRADS 1 NEGATIVE. Left Breast: BIRADS 1 NEGATIVE. OVERALL FINAL ASSESSMENT: BIRADS 1 NEGATIVE. RECOMMENDATION: Routine annual follow-up in 1 Year A letter with findings and recommendations will be mailed to the patient. Reading Location: [id number]
== END | disposition home or self-care (01) ==
PROVIDERS: PCP Family Medicine; Referring Provider Family Medicine; Visit Provider Family Medicine
DX: Z12.31 Encounter for screening mammogram for malignant neoplasm of breast (principal)
CPT/HCPCS: 77063; 77067